=== PATIENT | female | born 1990 | race Caucasian/White ===

== ENCOUNTER 2016-11-20 07:55 | Emergency (ER) | payer BC, MEDICAID ==
[2011-05-15 08:50] VITALS: BMI 24.9
[2016-11-20 11:01] LABS: APPEARANCE HAZY (CLEAR); BILIRUBIN NEGATIVE (NEGATIVE); COLOR DK YELLOW (YELLOW); GLUCOSE NEGATIVE (NEGATIVE); KETONE NEGATIVE (NEGATIVE); LEUKOCYTE ESTERASE 1+ (NEGATIVE); NITRITE NEGATIVE (NEGATIVE); PROTEIN NEGATIVE (NEGATIVE); UROBILINOGEN NORMAL (NORMAL)
[2016-11-20 11:04] LABS: BACTERIA MODERATE /hpf (NONE SEEN); MUCUS >1+ /lpf (NONE SEEN); RED CELLS - URINE 0-5 /hpf (0-5)
== END 2016-11-20 11:58 | disposition home or self-care (01) ==
LOC: D.ER 07:55
PROVIDERS: Family Medicine
DX: J06.9 Acute upper respiratory infection, unspecified (principal); N39.0 Urinary tract infection, site not specified

== ENCOUNTER 2016-11-28 10:40 | Inpatient (IN) | payer BC, MEDICAID ==
[2016-11-28] VITALS (12 sets, daily range): BP systolic 95–126; BP diastolic 53–85; Ht 162.6 cm; Wt 74.1 kg
[~2016-11-28] VITALS: Ht 162.6 cm; Wt 74.1 kg
[2016-11-28] MEDS ORDERED: PRENATAL COMPLE1 TAB PO (11:10)
[2016-11-28] MEDS ORDERED: FERROUS (11:11)
[2016-11-28 11:28] LABS: APPEARANCE CLEAR (CLEAR); BILIRUBIN NEGATIVE (NEGATIVE); COLOR YELLOW (YELLOW); FERN TEST POSITIVE (NEGATIVE); GLUCOSE NEGATIVE (NEGATIVE); KETONE NEGATIVE (NEGATIVE); LEUKOCYTE ESTERASE NEGATIVE (NEGATIVE); NITRITE NEGATIVE (NEGATIVE); PROTEIN NEGATIVE (NEGATIVE); SPECIFIC GRAVITY 1.005 (1.005-1.020); UROBILINOGEN NORMAL (NORMAL)
[2016-11-28 11:33] LABS: HEMATOCRIT 35.8 % (36.0-48.0); HEMOGLOBIN 11.6 g/dL (12-16); MCH 28.3 pg (26.0-34.0); MCHC 32.4 g/dL (31.0-37.0); MCV 87.3 fL (80.0-100.0); MEAN PLATELET VOLUME 12.1 fL (7.4-10.4); PLATELET COUNT 213 10x3/uL (130-400); RDW 14.1 % (11.5-14.5); WBC 10.2 10x3/uL (4.8-10.8)
[2016-11-28 11:36] LABS: UDS - AMPHET NEGATIVE QUAL (NEGATIVE); UDS - BARB NEGATIVE QUAL (NEGATIVE); UDS - BENZO NEGATIVE QUAL (NEGATIVE); UDS - COCAINE NEGATIVE QUAL (NEGATIVE); UDS - METH NEGATIVE QUAL (NEGATIVE); UDS - OPIATE NEGATIVE QUAL (NEGATIVE); UDS - PCP NEGATIVE QUAL (NEGATIVE); UDS - THC NEGATIVE QUAL (NEGATIVE)
--- NOTE | 2016-11-28 12:50 | NUR ---
1239 VIABLE BABY BOY DELIVERED CORD BLOOD AND GASES DONE AND SENT OUT, KIAH.
--- NOTE | 2016-11-28 14:15 | NUR ---
PT RECEIVED FROM RECOVERY. GEN- AWAKE AND ALERT. LUNGS- CLEAR. HEART- RRR. LUNGS- CLEAR. ABD- SOFT WITH TENDERNESS. INCISION- DERMABOND WITH STERI STRIPS INTACT. EXT- SCD'S INTACT. PULSES PALPABLE. IV PATENT R FOREARM WIT LR WITH 20 MEQ PITOCIN AT 125 CC/HR. DEMEROL SUPPORT STAFF INITIATED. 10 MG Q 10 MIN WITH 200 MG LOCKOUT. SMALL LOCIA RUBRA. BED IS LOW. SIDERAILS ARE UP X 2. CALL LIGHT IN REACH.
--- NOTE | 2016-11-28 14:30 | NUR ---
Pt in bed c/o pain. Placing DRAGLINE OPERATOR HELPER set up at this time. Pt awake and alert, IV site to right wrist. Folet to bedside gravity draining without difficulty.
--- NOTE | 2016-11-28 16:25 | NUR ---
PT C/O CRAMPING PAIN IN ABDOMEN. REQUEST SOMETHING ELSE FOR PAIN. STATES HER PAIN IS A 10. GAVE HER IV TORADOL.
--- NOTE | 2016-11-28 18:23 | NUR ---
PTS PAIN REALLY IMPROVED WITH TORADOL. PAIN IS A 0 NOW. BED IS LOW. CALL LIGHT IN REACH AND SIDE RAILS UP X 2. OUTPUT 900CC. DAVE COLORED URINE. NS WITH PIT INFUSING AT 125 CC/HR. DEMEROL WIRING MECHANIC INTACT. DIA PATENT.
--- NOTE | 2016-11-28 18:58 | NUR ---
PT RECEIVED LYING IN BED AT THIS TIME. VSS. EMPTIED APPROX 150 CC SEROSANGINOUS DRAINAGE FROM ELEAZAR DRAIN AT THIS TIME. PT DENIES NEEDS. BED LOW. PHONE AND CALL LIGHT IN REACH. SRX2.
--- NOTE | 2016-11-28 19:25 | NUR ---
PT RECEIVED SITTING UP IN BED AAOX3 WITH FAMILY AT BEDSIDE. VSS. IV NOTED TO RIGHT WRIST INFUSING NS WITH 20 UNITS OF PIT @ 125. PATENT. DRESSING CDI. HEART RRR. LUNG SOUNDS CLEAR BILATERALLY. BOWEL SOUNDS ACTIVE X4 QUADRENTS. ABDOMEN SOFT WITH TENDERNESS. LOW TRANSVERSE INCISION NOTED TO ABDOMEN WITH STERI STRIPS. CDI. NO REDNESS, SWELLING, OR PURULENT DRAINAGE NOTED AT THIS TIME. FUNDUS FIRM AND MIDLINE U/U. MODERATE LOCHIA RUBRA NOTED TO KIESHA PAD AT THIS TIME. PLACED NEW PAD ON PT. SCDS NOTED TO BLE. PT DENIES NEEDS AT THIS TIME. BED LOW. PHONE AND CALL LIGHT IN REACH. SRX2.
--- NOTE | 2016-11-28 20:35 | NUR ---
PT INFANT AT THIS TIME. NOTIFIED NURSERY CONCERNING PT CONCERNS WITH INFANT . PT DENIES OTHER NEEDS. BED LOW. PHONE AND CALL LIGHT IN REACH. SRX2.
--- NOTE | 2016-11-28 21:25 | NUR ---
PT SITTING UP IN BED AT THIS TIME WITH INFANT IN ARMS. LOOKING LOVINGLY AT . MODERATE LOCHIA RUBRA NOTED TO KIESHA PAD AT THIS TIME AND LIGHT LOCHIA RUBRA NOTED TO BLUE AND PINK PAD UNDER PT. CHANGED PADS. PT DENIES OTHER NEEDS. BED LOW. PHONE AND CALL LIGHT IN REACH. SRX2.
--- NOTE | 2016-11-28 22:10 | NUR ---
PT SITTING UP IN BED AT THIS TIME WITH FOB AT BEDSIDE. DENIES NEEDS. BED LOW. PHONE AND CALL LIGHT IN REACH. SRX2.
--- NOTE | 2016-11-28 23:21 | NUR ---
PT SITTING UP IN BED AT THIS TIME. FOB AND INFANT AT BEDSIDE. REQUESTS MEDICATION FOR PAIN 04/16 AT THIS TIME. ADMINISTERED TORADOL IVP PER ORDERS. 200 CC DAVE URINE EMPTIED FROM DIA AT THIS TIME. VSS. SCANT LOCHIA RUBRA NOTED TO KIESHA PAD. PLACED CLEAN KIESHA PAD ON PT AT THIS TIME. ENCOURAGED FLUIDS AT THIS TIME. PT STATES SHE HAS BEEN DRINKING HER ICE WATER. DENIES NEEDS. BED LOW. PHONE AND CALL LIGHT IN REACH. SRX2.
--- NOTE | 2016-11-29 01:32 | NUR ---
PT RESTING QUIETLY AT THIS TIME WATCHING TV. FOB AT BEDSIDE. DENIES NEEDS AT THIS TIME. BED LOW. PHONE AND CALL LIGHT IN REACH. SRX2.
--- NOTE | 2016-11-29 03:57 | NUR ---
PT SITTING UP IN BED WATCHING TV AT THIS TIME. SCANT LOCHIA RUBRA NOTED TO KIESHA PAD AND BLUE PAD UNDER PT AT THIS TIME. PLACED CLEAN PADS UNDER PT. PT REQUESTS ICE PACK. DENIES OTHER NEEDS. BED LOW. PHONE AND CALL LIGHT IN REACH. SRX2.
[2016-11-29 03:58] VITALS: BP 93/56
--- NOTE | 2016-11-29 04:51 | NUR ---
PT URINE OUTPUT 100 CC SINCE 233211/28/16 AFTER ENCOURAGING FLUIDS. STOPPED INFUSION OF NS WITH 20 UNITS OF PITOCIN AT THIS TIME AND INITIATED LR @ 125 CC/HR DUE TO DECREASED URINE OUTPUT. WILL CONTINUE TO MONITOR URINE OUTPUT. PT DENIES FEELING ANY FULLNESS OF THE BLADDER. DENIES NEEDS AT THIS TIME. BED LOW. PHONE AND CALL LIGHT IN REACH. SRX2.
--- NOTE | 2016-11-29 05:55 | NUR ---
EMPTIED 450 CC DAVE URINE FROM DIA AT THIS TIME. PT RESTING QUIETLY WITH EYES CLOSED. RESPIRATIONS EVEN, NON-LABORED. NO ACUTE DISTRESS NOTED AT THIS TIME. BED LOW. PHONE AND CALL LIGHT IN REACH. SRX2.
[2016-11-29 06:13] LABS: RAPID PLASMA REAGIN Non Reactive (Non Reactive)
[2016-11-29 07:20] VITALS: BP 101/67
--- NOTE | 2016-11-29 07:20 | NUR ---
PT AWAKE, ALERT, SITTING UP IN BED HOLDING LOVINGLY. PLACED IN OPEN CRIB FOR ASSESSMENT. IV INFUSING VIA PUMP. LOW TRANSVERSE ABD INC C/D/I WITH STERI STRIPS. LOCHIA LIGHT ON KIESHA PAD. DIA DRAINING LARGE AMT OF CLEAR YELLOW URINE, [address] IN METER. VANE SCD'[address] IN PLACE. NO NEEDS AT THIS TIME. CL DIET PROVIDED.
--- NOTE | 2016-11-29 08:19 | NUR ---
PT ASKS WHEN SHE CAN HAVE REG DIET. PROVIDED.
--- NOTE | 2016-11-29 09:07 | NUR ---
KIESHA PAD CHANGED. LOCHIA SCANT. ICE BAG REFILLED. NO OTHER NEEDS. DISCUSSED PLAN OF CARE. WITH ORDER FROM MD NUNEZ D/C IFEOMA, JOHN'S AND MAY SHOWER.
--- NOTE | 2016-11-29 10:09 | NUR ---
CONTINUES TO REST EASILY. URINE OUTPUT EXCELLENT.
--- NOTE | 2016-11-29 10:33 | OP ---
PATIENT NAME: GENTRY CHANG MEDICAL RECORD: [id number] :91 LOCATION:[id number] ADMISSION DATE:11/28/16 SURGEON: DELMY LUCAS MD DATE OF OPERATION: 11/28/2016 PREOPERATIVE DIAGNOSIS: Previous section in labor. POSTOPERATIVE DIAGNOSIS: Previous section in labor. PROCEDURE: Repeat low transverse section. SURGEON: Delmy Lucas MD. ANESTHESIA: Spinal. FINDINGS: A 9 pound 0 ounce male infant with 9 and 9 Apgars in cephalic presentation with clear fluid. ESTIMATED BLOOD LOSS: 800 cc. COMPLICATIONS OF SURGERY: None. OPERATIVE NOTE: The patient was taken to the OR and prepped and draped in the usual manner for abdominal procedures under spinal anesthesia. A transverse incision was made in the lower abdomen and extended in a Pfannenstiel manner through subcutaneous tissue, fascia, dividing muscles in the midline. Peritoneum elevated and incised and this incision extended from the symphysis pubis to within 6 cm of the umbilicus. The lower uterine segment was then incised transversely and infant was delivered through the uteroabdominal incision. The was thoroughly suctioned, cord doubly clamped and ligated and handed to waiting nursery personnel. Vacuum was applied to the vertex to aid in delivery. Placenta was removed manually. The uterus was closed in two layers, first layer running interlocking #1 chromic suture, second layer a running noninterlocking #1 chromic suture. Pelvis was copiously irrigated and suctioned and hemostasis confirmed. Brandy was applied to the lower uterine segment incision. The fascial layer was then closed in a running noninterlocking #1 PDS loop suture. Skin incision closed using a subcuticular 2-0 plain gut suture. Dermabond was applied, a Steri-Strip dressing was applied and the patient went to the recovery area in good condition. TRANSINT:[id number] Voice Confirmation ID: [id number] DOCUMENT ID: [id number] DELMY LUCAS MD at 1033 CC: [id number] DICTATION DATE: 11/28/16 1340 PHOTOENGRAVER APPRENTICE: 11/28/16 1648 ADM IN [id number] [place] [address]
--- NOTE | 2016-11-29 10:35 | NUR ---
LAB HERE FOR BLOOD DRAW.
--- NOTE | 2016-11-29 11:10 | NUR ---
DIA D/C'D INTACT. INSTRUCTED IN NEED TO VOID WITHIN 4 HOURS.
[2016-11-29 11:38] LABS: HEMATOCRIT 32.9 % (36.0-48.0); HEMOGLOBIN 10.8 g/dL (12-16); MCHC 32.8 g/dL (31.0-37.0); MCV 88.4 fL (80.0-100.0); MEAN PLATELET VOLUME 11.9 fL (7.4-10.4); RBC 3.72 10x6/uL (4.00-5.40); RDW 14.3 % (11.5-14.5); WBC 10.5 10x3/uL (4.8-10.8)
[2016-11-29 11:53] VITALS: BP 103/67
--- NOTE | 2016-11-29 12:09 | NUR ---
IVF'S D/C'D. EXPLAINED PO PAIN MEDS TO PT. IS NURSING. WHEN SHE FINISHES WILL ADMINISTER MEDS AND SHE WOULD LIKE TO SHOWER.
--- NOTE | 2016-11-29 13:10 | NUR ---
PT UP TO SHOWER, TOLERATED WELL. TRANSFERRED AMBULATORY TO ROOM 1257. ORIENTED TO ROOM, CALL LIGHT, ETC.
--- NOTE | 2016-11-29 13:30 | NUR ---
PT VOIDED 500 CC BLOODY URINE WITHOUT DIFFICULTY.
--- NOTE | 2016-11-29 13:37 | NUR ---
SITTING UP IN BED NURSING. STATES PAIN RELIEF WITH RX.
--- NOTE | 2016-11-29 13:42 | NUR ---
PER WEB IZ PT HAS HAD TDAP AT AGE 24.
--- NOTE | 2016-11-29 15:20 | NUR ---
REPORTS CONT'D INCISIONAL PAIN. MOTRIN 600 MG PO GIVEN/
[2016-11-29 15:26] VITALS: BP 106/64
--- NOTE | 2016-11-29 15:26 | NUR ---
INSTRUCTED IN USE OF IS. SUCCESSFULLY PERFORMED TO 1500. ENCOURAGED HOURLY USE.
--- NOTE | 2016-11-29 16:12 | NUR ---
RESTING IN BED HOLDING .
--- NOTE | 2016-11-29 17:06 | NUR ---
REQUESTS PAIN RX SEE EMAR.
--- NOTE | 2016-11-29 18:03 | NUR ---
PT UP AND ABOUT IN ROOM.
--- NOTE | 2016-11-29 19:20 | NUR ---
RCVD PT FROM Althea JEREZ RN. PT CURRENTLY UP IN BATHROOM. FAMILY AND FOB IN ROOM WITH INFANT AT THIS TIME. WILL CHECK BACK FOR SHIFT ASSESSMENT. FAMILY CURRENTLY DENIES NEEDS.
--- NOTE | 2016-11-29 19:41 | NUR ---
RN TO ROOM. Karolina PRUETT RN, NBN IN ROOM ASSISTING PT WITH BF AT THIS TIME. PT RATES PAIN CURRENTLY 02/14 AND IS AWARE OF MED. AVAILABILITY @ 2099. BLI C/D/I, NO ERTHEMA OR EDEMA NOTED @ SITE. SMALL LOCHIA RUBRA NOTED ON PERIPAD. PT REPORTS NO CLOTS WHEN VOIDING. BREATH SOUNDS CLEAR & UNLABORED X2. BOWEL SOUNDS ACTIVE X4. FUNDUS FIRM, U/1, ML. HR RRR, PPP. FAMILY REMAINS AT BEDSIDE. PT DENIES NEEDS AT THIS TIME. WILL CONT. TO MONITOR. BED LOW, WHEELS LOCKED, SR UP X2, CL IN REACH.
[2016-11-29 20:34] VITALS: BP 98/60
--- NOTE | 2016-11-29 20:35 | NUR ---
PT REQUESTS AND RECEIVES MOTRIN 600MG X1 TAB AND DEMEROL 50 MG X1 TAB FOR PAIN RATED 6/10 IN ABD DESCRIBED ACHING AT THIS TIME. PT LYING ON BACK, HOB 45 DEGREES WITH SKIN TO SKIN ON CHEST AT THIS TIME. FOB REMAINS AT BEDSIDE. PT DENIES FURTHER NEEDS. WILL CONT. TO MONITOR.
--- NOTE | 2016-11-29 22:14 | NUR ---
PT C/O IV CATCHING ON STUFF AND BEING TENDER. PIV TO RT WRIST D/C'D WITH CATH TIP IN TACT. PT ENRIQUE. WELL. PT CURRENTLY BF INFANT. FOB REMAINS ON BEDSIDE COUCH. PT DENIES PAIN OR FURTHER NEEDS AT THIS TIME. WILL CONT. TO MONITOR.
--- NOTE | 2016-11-30 00:21 | NUR ---
ROUNDS MADE. PT SITTING UP IN BED WITH INFANT IN LAP. FOB IN BED BESIDE PT. PT STATES "I'M HURTING PRETTY BAD." INFORMED PT OF PRN SCHEDULE. PT VERBALIZED UNDERSTANDING. WILL PLAN TO BRING DEMEROL @ 0100. WARM BLANKET PROVIDED FOR ABD PAIN PER PT REQUEST. PT DENIES FURTHER NEEDS AT THIS TIME.
--- NOTE | 2016-11-30 00:57 | NUR ---
DEMEROL 100MG GIVEN FOR PAIN RATED 10/10 IN ABD AT THIS TIME. TRANSPORTED TO [facility] VIA Karolina PRUETT RN VIA OPEN CRIB. FOB REMAINS IN BED WITH PT. ICE WATER PROVIDED PER PT REQUEST. PT DENIES FURTHER NEEDS AT THIS TIME. WILL CONT. POC.
--- NOTE | 2016-11-30 02:05 | NUR ---
RN CALLED TO PT BS WITH C/O PAIN, RATES 05/17. INFORMED PT SHE RECEIVED DEMEROL 100MG PO AN HOUR AGO, THE ONLY THING SHE WAS DUE FOR WAS IBUPROFEN. DISCUSSED WITH PT THE POSSIBILITY THIS PAIN COULD BE R/T TRAPPED GAS. INFORMED PT AMBULATING WOULD HELP RELIEVE PAIN. IBUPROFEN PROVIDED TO PT AT THIS TIME. PT DENIES ANY FURTHER NEEDS. BED IN LOW POSITION, SIDE RAILS UP TIMES 2, CALL LIGHT AND PHONE IN REACH. SO REMAINS AT PT BS FOR SUPPORT AND ASSISTANCE. WILL CONT TO MONITOR PT STATUS.
--- NOTE | 2016-11-30 03:19 | NUR ---
ROUNDS MADE. PT LYING ON LT SIDE WITH FOB IN BED WELL. PT RESTING, EYES CLOSED, RESP EVEN & UNLABORED. PT LEFT UNDISTURBED AT THIS TIME.
--- NOTE | 2016-11-30 05:20 | NUR ---
ROUNDS MADE. PT LYING ON RT SIDE. FOB SLEEPING IN BED NEXT TO PT. PT RATES PAIN 8/10 CURRENTLY. DEMEROL 100MG GIVEN PER ORDERS. SEE EMAR. PT DENIES FURTHER NEEDS. WILL CONTINUE TO MONITOR.
--- NOTE | 2016-11-30 06:03 | NUR ---
PT RESTING ON RT SIDE. EYES CLOSED. RESP EVEN & UNLABORED. PT LEFT UNDISTURBED AT THIS TIME. SO REMAINS ASLEEP ON BED.
--- NOTE | 2016-11-30 07:30 | NUR ---
AROUSED FROM SLEEP UPON ENTERING ROOM. VISITOR SLEEPING IN BED WITH PATIENT. DESIRES TO CONTINUE TO SLEEP, WILL COMPLETE ASSESSMENT WHEN AWAKE. IN NURSERY. DENIES NEEDING ANYTHING AT THIS TIME. ANTICIPATE DC HOME TODAY.
--- NOTE | 2016-11-30 07:59 | NUR ---
SLEEPING IN RIGHT SIDE. RESPIRATIONS EVEN. FOB SLEEPIN IN BED, RESPIRATIONS EVEN. NO AROUSED AT THIS TIME. INFANT IN NURSERY.
[2016-11-30 09:14] VITALS: BP 120/70
--- NOTE | 2016-11-30 09:24 | NUR ---
AWAKE, SITTING UP IN BED. SHIFT ASSESSMENT COMPLETED. DECREASED BS RIGHT AND LEFT LOWER QUADRANTS. DISTENDING BUT SOFT WITH SOME TYMPANY. DENIES PASSING FLATUS OR HAVING BM. NOTED SEVERAL CARBINATED BEVERAGES AT BEDSIDE, ENCOURAGED DECREASE IN DRINKING CARBINATED BEVERAGES, GETTING OOB AMBULATION, AND DISCUSSED BED POSITION TO PROMOTE PASSING FLATUS. HAS "SLIGHT PAIN" AT INCISION BUT 7/10 UPPER ABDOMEN "GAS" PAIN. INFANT IN NURSERY. FOB IN ROOM. DISCUSSED PAIN MANAGEMENT AND PROMOTION OF PASSING FLATUS. SIDE RAILS UP X 2, CALL LIGHT IN REACH.
--- NOTE | 2016-11-30 09:37 | NUR ---
MYLICON 80 MG GIVEN PO. DID NOT EAT BREAKFAST, SAYS LAST THING SHE REALLY ATE WAS YESTERDAY "I ATE A SANDWICH" HAS NOT FELT LIKE EATING DO TO GAS. VERBAL AND WRITTEN TDAP INFORMATION GIVEN. CONSIDERING VACCINE PRIOR TO DC HOME. ALSO DISCUSSED USE OF SUPPOSITORY IF MYLICON, AMBULATION AND BED POSITIONING DO NOT HELP WITH PASSING FLATUS.
--- NOTE | 2016-11-30 10:07 | NUR ---
SITTING IN SEMI-FOWLERS POSITION TILTED TO LEFT SIDE. HAS NOT TRIED TO LAY WITH HOB FLAT YET. ENCOURAGED TO GET OOB AT THIS TIME AND AMBULATE AROUND [facility]. DISCUSSED IMPORTANCE OF MOVING TO PROMOTE PASSING GAS. GOWNS GIVEN TO USE A ROBE. UP OOB AT THIS TIME TO BATHROOM, THEN PLANS TO AMBULATE. FOB, VISITOR AND IN ROOM.
--- NOTE | 2016-11-30 10:30 | NUR ---
DR LUCAS VISITED. PER TO GIVE HOT COFFEE AND DULCOLAX SUPP.
--- NOTE | 2016-11-30 10:39 | NUR ---
HOT COFFEE GIVEN. DULCOLAX SUPP 1 PER RECTUM AFTER DISCUSSING PURPOSE OF SUPP. VERBALIZED UNDERSTANDING. ENCOURAGED TO HOLD SUPP IN RECTUM LONG POSSIBLE. PT ANTICIPATES GOING HOME TODAY.
--- NOTE | 2016-11-30 11:00 | NUR ---
DESIRES TDAP AFTER REVIEWING INFORMATION. PHARMACY NOTIFIED.
--- NOTE | 2016-11-30 12:02 | NUR ---
RETURNED FROM AMBULATING IN CHANG. SAYS SHE DID PASS "A LITTLE" GAS. C/O INTERMITTENT INCISION THROBBING 01/14. DEMEROL 50 MG GIVEN PO. TDAP GIVEN IM LEFT DELTOID. DC ORDERS HAVE BEEN RECEIVED. LUNCH TRAY SERVED. VISITOR AND IN ROOM. NO ADDITIONAL REQUESTS.
[2016-11-30] MEDS ORDERED: IBUPROFEN600 MG PO (12:05)
[2016-11-30] MEDS ORDERED: MEPERIDINE HCL50 MG PO (12:05)
--- NOTE | 2016-11-30 12:50 | NUR ---
LAYING FLAT ON LEFT SIDE. SAYS PAIN WAS A 0/10 UNTIL REPOSITIONING AND THEN STARTED FEELING THROBBING. WAITING ON INSTRUCTOR EXTENSION WORK FOR INFANT DC. WILL COMPLETE DC TEACHING WHEN PATIENT IS READY. LIGHTS ON LOW, SIDE RAILS UP X 2, CALL LIGHT IN REACH. VISITORS X 2 IN ROOM.
--- NOTE | 2016-11-30 13:46 | NUR ---
REQUESTED ICE PACK AND PAIN MEDICATION FOR 8/10 INCISIONAL PAIN. SAYS IT STARTED WHEN SHE WENT WALKING. DISCUSSED USE OF ICE PACK AND PAIN MANAGEMENT. MOTRIN 600 MG GIVEN PO AND ICE PACK GIVEN TO USE UNTIL PAIN SUBSIDES. COMPLETED DC INSTRUCTIONS TO INCLUDE POST-OP C/S CARE, PAIN MANAGEMENT, EXPECTED HEALING, DEPRESSION, /BREAST CARE, S&S INFECTION, MEDICATION ADMINISTRATION AND FOLLOW-UP. BOTH VERBAL AND WRITTEN INFORMATION GIVEN. HAS PRESCRIPTIONS FOR MOTRIN AND DEMEROL. NO SPECIFIC QUESTIONS AT THIS TIME. WILL DC WHEN DISCHARGED. VISITORS X 2 IN ROOM ALONG WITH INFANT.
--- NOTE | 2016-11-30 14:50 | NUR ---
DC'D WITH INFANT VIA WHEELCHAIR TO CAR. HAS PRESCRIPTIONS, DC INSTRUCTIONS AND ALL PERSONAL BELONGINGS REMOVED FROM ROOM. WAS IN CARSEAT.
== END 2016-11-30 14:50 | disposition home or self-care (01) | DRG 766 ==
LOC: D.LDO 10:40 → D.LD 11:28 → D.WS 11:28 → D.LD 11-29 13:10
PROVIDERS: ADMIT Obstetrics & Gynecology
PROC: 10D00Z1 Extraction of Products of Conception, Low, Open Approach (ICD-10-PCS; principal; 2016-11-28 11:54)
DX: O34.211 Maternal care for low transverse scar from previous cesarean delivery (principal); Z3A.00 Weeks of gestation of pregnancy not specified; Z37.0 Single live birth

== ENCOUNTER 2017-08-19 19:58 | Emergency (ER) | payer MEDICAID ==
[2016-11-28 11:54] VITALS: BMI 28.0
[~2017-08-19 19:58] MED LIST: FERROUS; IBUPROFEN600 MG PO; MEPERIDINE HCL50 MG PO; PRENATAL COMPLE1 TAB PO
[2017-08-19 21:16] LABS: BASOPHILS 0.2 % (0-2); HEMATOCRIT 34.4 % (36.0-48.0); HEMOGLOBIN 11.5 g/dL (12-16); IMMATURE GRANULOCYTES 0.5 % (0-5); LYMPHOCYTES 29.1 % (15-50); MCH 28.7 pg (26.0-34.0); MCHC 33.4 g/dL (31.0-37.0); MCV 85.8 fL (80.0-100.0); MONOCYTES 8.9 % (2-11); NEUTROPHILS 59.3 % (40-80); RBC 4.01 10x6/uL (4.00-5.40); RDW 13.9 % (11.5-14.5); WBC 10.7 10x3/uL (4.8-10.8)
[2017-08-19 21:25] LABS: APPEARANCE CLEAR (CLEAR); BILIRUBIN NEGATIVE (NEGATIVE); COLOR YELLOW (YELLOW); GLUCOSE NEGATIVE (NEGATIVE); KETONE NEGATIVE (NEGATIVE); NITRITE NEGATIVE (NEGATIVE); PROTEIN NEGATIVE (NEGATIVE); UROBILINOGEN NORMAL (NORMAL)
[2017-08-19 21:26] LABS: BACTERIA MANY /hpf (NONE SEEN); EPITHELIAL CELLS 0-5 /hpf (0-5); RED CELLS - URINE OCC /hpf (0-5); WHITE CELLS - URINE 0-5 /hpf (0-5)
[2017-08-19 21:28] LABS: PLATELET COUNT 273 10x3/uL (130-400)
[2017-08-19 21:33] LABS: HCG SERUM POSITIVE (NEGATIVE)
[2017-08-19 21:41] LABS: ALBUMIN 3.2 g/dL (3.4-5.0); ALKALINE PHOSPHATASE 42 U/L (46-116); ALT (SGPT) 17 U/L (10-68); BILIRUBIN - TOTAL 0.19 mg/dL (0.2-1.3); CALC OSMOLALITY 274 mosm/kg (275-300); CALCIUM 8.1 mg/dL (8.5-10.1); CARBON DIOXIDE 21.8 mmol/L (21.0-32.0); CHLORIDE - SERUM 106 mmol/L (98-107); CREATININE - SERUM 0.5 mg/dL (0.6-1.3); GLUCOSE 106 mg/dL (74-106); POTASSIUM - SERUM 3.6 mmol/L (3.5-5.1); PROTEIN - SERUM 6.2 g/dL (6.4-8.2); SODIUM 138 mmol/L (136-145); UREA NITROGEN 9 mg/dL (7-18); eGFR NON AFRICAN AMERICAN > 90 mL/min (90-120)
[2017-08-19 22:13] LABS: HCG - QUANTITATIVE (MATERNAL) 58407 mIU/mL
== END 2017-08-19 22:23 | disposition home or self-care (01) ==
LOC: D.ER 19:58
PROVIDERS: Family Medicine
DX: K42.9 Umbilical hernia without obstruction or gangrene (principal); K21.9 Gastro-esophageal reflux disease without esophagitis

== ENCOUNTER → 2017-10-18 18:23 | Outpatient (CLI) | payer MEDICAID ==
[2016-11-28 11:54] VITALS: BMI 28.0
[2017-10-18 19:45] LABS: BASOPHILS 0.1 % (0-2); EOSINOPHILS 0.8 % (0-7); HEMATOCRIT 33.6 % (36.0-48.0); IMMATURE GRANULOCYTES 0.3 % (0-5); LYMPHOCYTES 8.8 % (15-50); MCH 28.6 pg (26.0-34.0); MCHC 32.7 g/dL (31.0-37.0); MCV 87.3 fL (80.0-100.0); MEAN PLATELET VOLUME 11.8 fL (7.4-10.4); MONOCYTES 4.4 % (2-11); NEUTROPHILS 85.6 % (40-80); RBC 3.85 10x6/uL (4.00-5.40); RDW 13.4 % (11.5-14.5); WBC 10.7 10x3/uL (4.8-10.8)
[2017-10-18 19:46] LABS: PLATELET COUNT 218 10x3/uL (130-400)
[2017-10-18 19:47] LABS: APPEARANCE HAZY (CLEAR); BILIRUBIN NEGATIVE (NEGATIVE); COLOR DK YELLOW (YELLOW); GLUCOSE NEGATIVE (NEGATIVE); KETONE SMALL mg/dL (NEGATIVE); NITRITE NEGATIVE (NEGATIVE); PROTEIN NEGATIVE (NEGATIVE); UROBILINOGEN NORMAL (NORMAL)
[2017-10-18 19:53] LABS: BACTERIA MANY /hpf (NONE SEEN); EPITHELIAL CELLS 0-5 /hpf (0-5); MUCUS >1+ /lpf (NONE SEEN); RED CELLS - URINE OCC /hpf (0-5)
[2017-10-18 19:54] LABS: UDS - AMPHET NEGATIVE QUAL (NEGATIVE); UDS - BARB NEGATIVE QUAL (NEGATIVE); UDS - BENZO NEGATIVE QUAL (NEGATIVE); UDS - COCAINE NEGATIVE QUAL (NEGATIVE); UDS - OPIATE NEGATIVE QUAL (NEGATIVE); UDS - PCP NEGATIVE QUAL (NEGATIVE); UDS - THC NEGATIVE QUAL (NEGATIVE)
[2017-10-18 21:00] LABS: ALBUMIN 3.2 g/dL (3.4-5.0); ALKALINE PHOSPHATASE 43 U/L (46-116); ALT (SGPT) 15 U/L (10-68); CALC OSMOLALITY 274 mosm/kg (275-300); CARBON DIOXIDE 25.5 mmol/L (21.0-32.0); CHLORIDE - SERUM 104 mmol/L (98-107); CREATININE - SERUM 0.5 mg/dL (0.6-1.3); GLUCOSE 88 mg/dL (74-106); POTASSIUM - SERUM 3.2 mmol/L (3.5-5.1); PROTEIN - SERUM 6.4 g/dL (6.4-8.2); SODIUM 139 mmol/L (136-145); UREA NITROGEN 7 mg/dL (7-18); eGFR NON AFRICAN AMERICAN > 90 mL/min (90-120)
== END | disposition home or self-care (01) ==
LOC: D.LDO 18:23
PROVIDERS: Obstetrics & Gynecology
DX: O21.9 Vomiting of pregnancy, unspecified (principal); Z3A.21 21 weeks gestation of pregnancy

== ENCOUNTER 2017-10-19 00:06 | Outpatient (CLI) | payer MEDICAID ==
[2016-11-28 11:54] VITALS: BMI 28.0
== END 2017-10-19 02:20 | disposition home or self-care (01) ==
LOC: D.LDO 00:06
DX: O21.9 Vomiting of pregnancy, unspecified (principal); Z3A.00 Weeks of gestation of pregnancy not specified

== ENCOUNTER → 2017-12-09 07:09 | Outpatient (CLI) | payer MEDICAID ==
[2016-11-28 11:54] VITALS: BMI 28.0
[~2017-12-09 07:09] MED LIST changes: +MACROBID100 MG PO
[2017-12-09 07:43] LABS: APPEARANCE SLT CLOUDY (CLEAR); BILIRUBIN NEGATIVE (NEGATIVE); COLOR YELLOW (YELLOW); EPITHELIAL CELLS 25-50 /hpf (0-5); GLUCOSE NEGATIVE (NEGATIVE); KETONE NEGATIVE (NEGATIVE); NITRITE NEGATIVE (NEGATIVE); PROTEIN TRACE mg/dL (NEGATIVE); RED CELLS - URINE 0-5 /hpf (0-5); SPECIFIC GRAVITY 1.015 (1.005-1.020); UROBILINOGEN NORMAL (NORMAL)
[2017-12-09 07:44] LABS: BACTERIA MANY /hpf (NONE SEEN)
[2017-12-09 08:12] LABS: BASOPHILS 0.2 % (0-2); EOSINOPHILS 1.6 % (0-7); HEMATOCRIT 29.7 % (36.0-48.0); HEMOGLOBIN 9.7 g/dL (12-16); IMMATURE GRANULOCYTES 0.7 % (0-5); LYMPHOCYTES 23.9 % (15-50); MCH 28.6 pg (26.0-34.0); MCHC 32.7 g/dL (31.0-37.0); MCV 87.6 fL (80.0-100.0); MEAN PLATELET VOLUME 11.2 fL (7.4-10.4); MONOCYTES 10.6 % (2-11); PLATELET COUNT 211 10x3/uL (130-400); RBC 3.39 10x6/uL (4.00-5.40); RDW 13.1 % (11.5-14.5); WBC 8.3 10x3/uL (4.8-10.8)
[2017-12-09 08:34] LABS: ALBUMIN 2.6 g/dL (3.4-5.0); ALKALINE PHOSPHATASE 61 U/L (46-116); ALT (SGPT) 9 U/L (10-68); BILIRUBIN - TOTAL 0.23 mg/dL (0.2-1.3); CALC OSMOLALITY 272 mosm/kg (275-300); CALCIUM 8.2 mg/dL (8.5-10.1); CARBON DIOXIDE 24.4 mmol/L (21.0-32.0); CHLORIDE - SERUM 106 mmol/L (98-107); CREATININE - SERUM 0.6 mg/dL (0.6-1.3); GLUCOSE 88 mg/dL (74-106); POTASSIUM - SERUM 4.1 mmol/L (3.5-5.1); SODIUM 138 mmol/L (136-145); UREA NITROGEN 6 mg/dL (7-18); eGFR NON AFRICAN AMERICAN > 90 mL/min (90-120)
[2017-12-09 08:39] LABS: APPEARANCE HAZY (CLEAR); BACTERIA MODERATE /hpf (NONE SEEN); BILIRUBIN NEGATIVE (NEGATIVE); COLOR YELLOW (YELLOW); EPITHELIAL CELLS 0-5 /hpf (0-5); GLUCOSE NEGATIVE (NEGATIVE); KETONE NEGATIVE (NEGATIVE); MUCUS <1+ /lpf (NONE SEEN); NITRITE NEGATIVE (NEGATIVE); PROTEIN NEGATIVE (NEGATIVE); RED CELLS - URINE OCC /hpf (0-5); SPECIFIC GRAVITY 1.015 (1.005-1.020); UROBILINOGEN NORMAL (NORMAL); WHITE CELLS - URINE 0-5 /hpf (0-5)
== END | disposition home or self-care (01) ==
LOC: D.LDO 07:09
PROVIDERS: Obstetrics & Gynecology
DX: O26.893 Other specified pregnancy related conditions, third trimester (principal); Z3A.28 28 weeks gestation of pregnancy; R10.30 Lower abdominal pain, unspecified; M54.5 Low back pain

== ENCOUNTER → 2017-12-25 12:23 | Outpatient (CLI) | payer MEDICAID ==
[2016-11-28 11:54] VITALS: BMI 28.0
[2017-12-25 14:01] LABS: APPEARANCE HAZY (CLEAR); BILIRUBIN NEGATIVE (NEGATIVE); COLOR DK YELLOW (YELLOW); GLUCOSE NEGATIVE (NEGATIVE); KETONE NEGATIVE (NEGATIVE); NITRITE NEGATIVE (NEGATIVE); PROTEIN TRACE mg/dL (NEGATIVE); SPECIFIC GRAVITY 1.015 (1.005-1.020)
[2017-12-25 14:03] LABS: BACTERIA MODERATE /hpf (NONE SEEN); CALCIUM OXALATE CRYSTALS 0-5 /hpf (NONE SEEN); MUCUS >1+ /lpf (NONE SEEN); RED CELLS - URINE 0-5 /hpf (0-5)
== END | disposition home or self-care (01) ==
LOC: D.LDO 12:23
PROVIDERS: Obstetrics & Gynecology
DX: O21.9 Vomiting of pregnancy, unspecified (principal); Z3A.00 Weeks of gestation of pregnancy not specified

== ENCOUNTER → 2018-01-27 19:22 | Outpatient (CLI) | payer MEDICAID ==
[2016-11-28 11:54] VITALS: BMI 28.0
== END | disposition home or self-care (01) ==
LOC: D.LDO 19:22
DX: O26.859 Spotting complicating pregnancy, unspecified trimester (principal); Z3A.00 Weeks of gestation of pregnancy not specified; R10.2 Pelvic and perineal pain

== ENCOUNTER 2018-02-15 23:54 | Outpatient (CLI) | payer MEDICAID ==
[2016-11-28 11:54] VITALS: BMI 28.0
[2018-02-16 00:44] LABS: APPEARANCE HAZY (CLEAR); BILIRUBIN NEGATIVE (NEGATIVE); COLOR YELLOW (YELLOW); GLUCOSE NEGATIVE (NEGATIVE); KETONE NEGATIVE (NEGATIVE); NITRITE NEGATIVE (NEGATIVE); PROTEIN NEGATIVE (NEGATIVE); UROBILINOGEN NORMAL (NORMAL)
[2018-02-16 00:45] LABS: BACTERIA MANY /hpf (NONE SEEN); EPITHELIAL CELLS 0-5 /hpf (0-5); RED CELLS - URINE 0-5 /hpf (0-5); WHITE CELLS - URINE 0-5 /hpf (0-5)
[2018-02-16 00:46] LABS: AMORPHOUS SEDIMENT <1+ /lpf (NONE SEEN)
[2018-02-16 02:12] LABS: BASOPHILS 0.2 % (0-2); EOSINOPHILS 0.6 % (0-7); HEMATOCRIT 28.6 % (36.0-48.0); HEMOGLOBIN 9.5 g/dL (12-16); IMMATURE GRANULOCYTES 0.5 % (0-5); LYMPHOCYTES 31.5 % (15-50); MCH 27.5 pg (26.0-34.0); MCHC 33.2 g/dL (31.0-37.0); MCV 82.9 fL (80.0-100.0); MEAN PLATELET VOLUME 11.6 fL (7.4-10.4); NEUTROPHILS 56.2 % (40-80); RBC 3.45 10x6/uL (4.00-5.40); RDW 13.3 % (11.5-14.5); WBC 9.7 10x3/uL (4.8-10.8)
[2018-02-16 02:13] LABS: PLATELET COUNT 254 10x3/uL (130-400)
[2018-02-17] MEDS ORDERED: CYCLOBENZAPRINE10 MG PO (08:56)
[2018-02-17] MEDS ORDERED: TYLENOL W/CODEI1 TAB PO (08:56)
[2018-02-17] MEDS ORDERED: CELEXA10 MG PO (08:57)
[2018-02-17] MEDS ORDERED: ZANTAC150 MG PO (08:57)
== END 2018-02-16 04:45 | disposition home or self-care (01) ==
LOC: D.LDO 23:54 → D.LD 23:54 → D.LDO 02-16 04:45
PROVIDERS: Obstetrics & Gynecology
DX: O26.893 Other specified pregnancy related conditions, third trimester (principal); Z3A.38 38 weeks gestation of pregnancy; M54.6 Pain in thoracic spine

== ENCOUNTER → 2018-02-16 09:30 | Outpatient (CLI) | payer MEDICAID ==
[2016-11-28 11:54] VITALS: BMI 28.0
[~2018-02-16 09:30] MED LIST changes: +CELEXA10 MG PO; +CYCLOBENZAPRINE10 MG PO; +HYDROCODONE-APA1 TAB PO; +MOTRIN600 MG PO; +TYLENOL W/CODEI1 TAB PO; +ZANTAC150 MG PO
== END | disposition home or self-care (01) ==
LOC: D.LDO 09:30
DX: O26.893 Other specified pregnancy related conditions, third trimester (principal); Z3A.38 38 weeks gestation of pregnancy; M54.5 Low back pain

== ENCOUNTER 2018-02-17 07:42 | Inpatient (IN) | payer MEDICAID ==
[2018-02-16 11:16] LABS: HEMATOCRIT 29.9 % (36.0-48.0); HEMOGLOBIN 9.7 g/dL (12-16); MCH 27.2 pg (26.0-34.0); MCHC 32.4 g/dL (31.0-37.0); MCV 83.8 fL (80.0-100.0); MEAN PLATELET VOLUME 11.5 fL (7.4-10.4); RBC 3.57 10x6/uL (4.00-5.40); RDW 13.4 % (11.5-14.5); WBC 9.4 10x3/uL (4.8-10.8)
[~2018-02-17] VITALS: Ht 162.6 cm; Wt 67.1 kg
[2018-02-17] VITALS (12 sets, daily range): BP systolic 101–133; BP diastolic 61–86; Ht 162.6 cm; Wt 67.1 kg
--- NOTE | ~2018-02-17 | DS ---
PATIENT:GENTRY CHANG :89 MEDICAL RECORD: [id number] DISCHARGE SUMMARY ADMISSION DATE: 02/17/18 DISCHARGE DATE: 02/19/18 HISTORY: The patient was admitted on 02/17/2018. A 27-year-old at 38 weeks and 6 days, who was admitted in active labor with history of previous section. The patient was noted to be O positive, group B strep negative, and rubella immune. PAST MEDICAL HISTORY: Significant for polysubstance abuse, in remission. The patient also reports history of depression. PAST SURGICAL HISTORY: Significant for times 2 and previous cholecystectomy as well as surgery in nose and mouth. ALLERGIES: The patient reported no significant allergies. MEDICATIONS: Significant only for vitamins and Macrobid. FAMILY HISTORY: The patient reported no significant family history. SOCIAL HISTORY: The patient reported being a current someday tobacco smoker and history of marijuana, methamphetamine, and prescription drug use. PHYSICAL EXAMINATION: VITAL SIGNS: On initial physical exam, vital signs were stable. The patient was afebrile and normotensive. LUNGS: Clear to auscultation. CARDIOVASCULAR: Regular rate and rhythm. PELVIC: Uterus was appropriately sized and nontender. Vaginal exam revealed the patient to be 5-cm dilated. EXTREMITIES: Lower extremities were free of Homans sign. Admit hemoglobin was 9.7 with white blood cell count of 9.4 and platelet count of 252. ASSESSMENT AND PLAN: At that time, 1. Term intrauterine at 38 weeks and 6 days. 2. Labor. 3. History of times 2. 4. History of polysubstance abuse. 5. Depression. PLAN: At that time, repeat low transverse section and tubal ligation. Plan also to start Zoloft for depression. Admit wellbeing was reassuring with a category 1 tracing. was performed. Operative report is as dictated. The patient did well overnight on postop day #0, on Dilaudid CHARGE LPN and IV Toradol, tolerating clear liquids. Eason catheter was left in overnight. Urine output was found to be adequate. SCDs were on and functioning appropriately. On the morning of postoperative day #1, the patient was doing well. Vital signs were stable. The patient was afebrile. Hemoglobin was noted to be stable. Uterus was infraumbilical and appropriately tender. Incision was clean, dry, and intact at that time. The patient was advanced to general diet and p.o. pain meds. Eason catheter was discontinued and ambulation was begun. The patient continued to improve overnight on postop day #1, and on DISCHARGE SUMMARY REPORT [id number] GENTRY CHANG the morning of postop day #2, the patient was doing well. Vital signs were stable. The patient was afebrile. Uterus was infraumbilical and appropriately tender. Minimal lochia noted at that time. The patient was tolerating p.o. pain meds and general diet. The patient was discharged home on postop day #2 with instructions to follow up for staple removal. TRANSINT:[id number] Voice Confirmation ID: [id number] DOCUMENT ID: [id number] SEAN GEE MD at 1304 CC: [id number] DICTATION DATE: 04/04/18 0559 ELECTRONICS TECHNOLOGY INSTRUCTOR: 04/04/18 1639 DIS IN 02/19/18 [facility] [address] [place] [address]
--- NOTE | ~2018-02-17 | OP ---
PATIENT NAME: GENTRY CHANG MEDICAL RECORD: [id number] :91 LOCATION:[id number] ADMISSION DATE:02/17/18 SURGEON: TOPHER SUN MD DATE OF OPERATION: 02/17/2018 PREOPERATIVE DIAGNOSES: 1. Term intrauterine . 2. Labor. 3. History of previous section. POSTOPERATIVE DIAGNOSES: 1. Term intrauterine . 2. Labor. 3. History of previous section. PROCEDURES: Repeat low transverse section and bilateral distal salpingectomy. SURGEON: Topher Sun ANESTHESIA: Regional via spinal. SPECIMENS: Placenta and cord for gases as well as distal portion of the fallopian tubes. ESTIMATED BLOOD LOSS: 1000 cc. IV FLUID: Per anesthesia records. FINDINGS: 1. Viable , Apgars 9 at 1 and 9 at 5. 2. Placenta delivered manually intact. Three-vessel cord noted. 3. Grossly normal adnexa bilaterally. COMPLICATIONS: None apparent. PROCEDURE: The patient was taken to the operating room where regional anesthesia was achieved without difficulty. The patient was then prepped and draped in normal sterile fashion in the dorsal supine position. SCDs were on and functioning appropriately. A Eason catheter had been placed and was draining freely. Following prep and drape, a repeat Pfannenstiel skin incision was made and extended downward to the underlying subcutaneous fat to the level of the fascia. The fascial incision was then extended bilaterally using the Crystal scissors. The fascial incision was grasped at superior and inferior aspects with Lexi clamps times 2, tented upward, and sharply dissected from the underlying rectus muscle using the Bovie cautery and the Crystal scissors. Rectus muscles were then carefully in the midline. Peritoneum was identified and sharply entered at the superior aspect of the incision. Further dissection of the peritoneum was performed using the Metzenbaum scissors. The bladder was identified and a bladder flap was created by excising the anterior leaf of the broad ligament across the lower uterine segment using the Metzenbaum scissors. Bladder blade was then placed into the pelvis and a low transverse incision was made with scalpel and extended superiorly and inferiorly using the Pelosi method. 's head was delivered atraumatically followed by the body. was bulb suctioned. Cord was clamped times 2, cut, and the was OPERATIVE REPORT [id number] GENTRY CHANG handed to the awaiting nursery team. At this point, the placenta was removed manually intact. Uterus was exteriorized, cleared of all clots and debris, vigorously massaged until good uterine tone was noted. The lateral margins of the uterine incision was then grasped with Lexi clamps and the uterus was repaired with #0 Vicryl in a running-locked fashion times 2 with good hemostasis noted. At this point, attention was turned to the bilateral fallopian tubes. A defect was made in the mesosalpinx bilaterally and the mesosalpinx was then clamped using a Janki clamp. A second Janki clamp was then used to clamp the approximate midportion of the fallopian tube. The tube was then removed. This was performed bilaterally and the pedicles were oversewn with 2-0 Vicryl suture, first free tied and then distally transfixed with good hemostasis noted. Posterior cul-de-sac was then thoroughly irrigated and uterus was replaced into the pelvis. The anterior cul-de-sac was then thoroughly irrigated. The surgical sites were checked and found to be hemostatic. At this point, counts were correct times 2 for needles, sponges, and instruments. The fascia was repaired with #0 loop PDS and the skin was repaired with thierno. The patient tolerated the procedure well. She was transferred to postanesthesia recovery stable without incident. TRANSINT:[id number] Voice Confirmation ID: [id number] DOCUMENT ID: [id number] TOPHER SUN MD at 1304 CC: [id number] DICTATION DATE: 04/04/18 0555 MISSIONARY COORDINATOR: 04/04/18 1631 DIS IN 02/19/18 [facility] [address] [id number]
[2018-02-17 07:30] LABS: RAPID PLASMA REAGIN Non Reactive (Non Reactive)
[~2018-02-17 07:42] MED LIST changes: -CELEXA10 MG PO; -CYCLOBENZAPRINE10 MG PO; -HYDROCODONE-APA1 TAB PO; -MOTRIN600 MG PO; -TYLENOL W/CODEI1 TAB PO; -ZANTAC150 MG PO
[2018-02-17] MEDS ORDERED: TYLENOL W/CODEI1 TAB PO (08:56)
[2018-02-17] MEDS ORDERED: CYCLOBENZAPRINE10 MG PO (08:56)
[2018-02-17] MEDS ORDERED: ZANTAC150 MG PO (08:57)
[2018-02-17] MEDS ORDERED: CELEXA10 MG PO (08:57)
[2018-02-17 10:00] LABS: APPEARANCE HAZY (CLEAR); BILIRUBIN NEGATIVE (NEGATIVE); COLOR YELLOW (YELLOW); GLUCOSE NEGATIVE (NEGATIVE); KETONE NEGATIVE (NEGATIVE); NITRITE NEGATIVE (NEGATIVE); PROTEIN NEGATIVE (NEGATIVE); UROBILINOGEN NORMAL (NORMAL)
[2018-02-17 10:02] LABS: BACTERIA MODERATE /hpf (NONE SEEN); EPITHELIAL CELLS 0-5 /hpf (0-5); MUCUS <1+ /lpf (NONE SEEN)
[2018-02-17 15:15] LABS: BASOPHILS 0.1 % (0-2); EOSINOPHILS 0.1 % (0-7); HEMATOCRIT 28.1 % (36.0-48.0); HEMOGLOBIN 9.1 g/dL (12-16); IMMATURE GRANULOCYTES 0.4 % (0-5); LYMPHOCYTES 15.1 % (15-50); MCH 27.2 pg (26.0-34.0); MCHC 32.4 g/dL (31.0-37.0); MCV 83.9 fL (80.0-100.0); MEAN PLATELET VOLUME 11.9 fL (7.4-10.4); MONOCYTES 4.8 % (2-11); NEUTROPHILS 79.5 % (40-80); PLATELET COUNT 214 10x3/uL (130-400); RBC 3.35 10x6/uL (4.00-5.40); RDW 13.4 % (11.5-14.5)
[2018-02-17 15:18] LABS: WBC 15.8 10x3/uL (4.8-10.8)
[2018-02-18 00:15] VITALS: BP 104/63
[2018-02-18 05:37] LABS: BASOPHILS 0.1 % (0-2); EOSINOPHILS 0.8 % (0-7); HEMATOCRIT 26.5 % (36.0-48.0); HEMOGLOBIN 8.5 g/dL (12-16); IMMATURE GRANULOCYTES 0.7 % (0-5); LYMPHOCYTES 21.2 % (15-50); MCH 26.9 pg (26.0-34.0); MCHC 32.1 g/dL (31.0-37.0); MCV 83.9 fL (80.0-100.0); MEAN PLATELET VOLUME 12.4 fL (7.4-10.4); MONOCYTES 11.8 % (2-11); NEUTROPHILS 65.4 % (40-80); PLATELET COUNT 191 10x3/uL (130-400); RBC 3.16 10x6/uL (4.00-5.40); RDW 13.5 % (11.5-14.5)
[2018-02-18 05:40] LABS: WBC 10.3 10x3/uL (4.8-10.8)
[2018-02-18 06:00] VITALS: BP 93/58
[2018-02-18 08:01] VITALS: BP 105/62
[2018-02-18 20:10] VITALS: BP 94/58
[2018-02-19 00:20] VITALS: BP 91/63
[2018-02-19 07:40] VITALS: BP 98/65
[2018-02-19] MEDS ORDERED: HYDROCODONE-APA1 TAB PO (10:36)
[2018-02-19] MEDS ORDERED: MOTRIN600 MG PO (10:36)
== END 2018-02-19 13:01 | disposition home or self-care (01) | DRG 766 ==
LOC: D.LD 07:42
PROVIDERS: Obstetrics & Gynecology
PROC: 10D00Z1 Extraction of Products of Conception, Low, Open Approach (ICD-10-PCS; principal; 2018-02-17 09:00)
PROC: 0UB70ZZ Excision of Bilateral Fallopian Tubes, Open Approach (ICD-10-PCS; 2018-02-17 09:00)
DX: O99.344 Other mental disorders complicating childbirth (principal); Z3A.38 38 weeks gestation of pregnancy; Z37.0 Single live birth; O34.219 Maternal care for unspecified type scar from previous cesarean delivery; O99.334 Smoking (tobacco) complicating childbirth; Z30.09 Encounter for other general counseling and advice on contraception; Z30.2 Encounter for sterilization

== ENCOUNTER 2019-03-26 21:24 | Emergency (ER) | payer MEDICAID ==
[2018-02-17 08:41] VITALS: BMI 25.4
[~2019-03-26 21:24] MED LIST changes: +CELEXA10 MG PO; +CYCLOBENZAPRINE10 MG PO; +HYDROCODONE-APA1 TAB PO; +MOTRIN600 MG PO; +TYLENOL W/CODEI1 TAB PO; +ZANTAC150 MG PO
== END 2019-03-26 21:36 | disposition left against medical advice (07) ==
LOC: D.ER 21:24
DX: M54.9 Dorsalgia, unspecified (principal)